=== PATIENT | female | born 2000 | race American Indian/Alaskan Native ===

== ENCOUNTER 2021-01-22 18:14 | Outpatient (CLI) | payer MEDICAID ==
[2021-01-22 20:05] VITALS: BP 111/62
[2021-01-22] MEDS ORDERED: LACTATED RINGERS 1,000 ML IV ONE (20:05)
[2021-01-22] MEDS ORDERED: BETAMET ACET/BETAMET NA PH 6 MG/ML INJ 5 ML MDV IM ONE (21:35)
== END 2021-01-22 20:50 | disposition home or self-care (01) ==
LOC: TRG 18:14 → EDBD 18:14 → APU 18:15 → TRG 20:50
PROVIDERS: ATTEND Obstetrics & Gynecology
DX: O34.32 Maternal care for cervical incompetence, second trimester (principal); O47.02 False labor before 37 completed weeks of gestation, second trimester; Z3A.26 26 weeks gestation of pregnancy; Z87.891 Personal history of nicotine dependence
CPT/HCPCS: 59025; 96372; J0702

== ENCOUNTER 2021-03-31 21:18 | Outpatient (CLI) | payer MEDICAID ==
[2021-03-31] MEDS ORDERED: LACTATED RINGERS 500 ML IV ONE (22:31)
[2021-03-31] MEDS ORDERED: TERBUTALINE 1 MG/1 ML INJ SUB-Q ONE (23:00)
[2021-03-31 23:08] LABS: Bilirubin,Urine NEG (Negative); Blood,Urine NEG (Negative); Color,Urine Yellow (Yellow); Mucus,Urine FEW /HPF; Protein,Urine <15 mg/dL mg/dL (Negative)
[2021-04-17 09:56] VITALS: BP 127/60
== END 2021-04-01 00:43 | disposition home or self-care (01) ==
LOC: TRG 21:18 → APU 22:00 → TRG 04-01 00:43
PROVIDERS: ATTEND Obstetrics & Gynecology
DX: O62.9 Abnormality of forces of labor, unspecified (principal); O34.33 Maternal care for cervical incompetence, third trimester; Z3A.36 36 weeks gestation of pregnancy
CPT/HCPCS: 59025; 81001; 96360; 96372; J3105; J7120